=== PATIENT | female | born 1990 | race Caucasian/White ===

== ENCOUNTER 2022-12-23 23:34 | Outpatient (CLI) | payer OTHER ==
[2022-12-23 23:46] VITALS: BP 153/101; PULSE 77; TEMP 97.6
[2022-12-24] VITALS (7 sets, daily range): BP systolic 138–155; BP diastolic 85–100; PULSE 58–84
[2022-12-24 00:32] LABS: BASO % 0.2 % (0.0-2.0); EOS # 0.1 K/mm3 (0.0-0.7); EOS % 1.3 % (0.0-4.0); GRAN # 5.5 K/mm3 (1.4-6.5); GRAN % 61.5 % (42.2-75.2); HEMOGLOBIN 11.6 g/dl (12.5-16.0); LYMPH # 2.6 K/mm3 (1.2-3.4); LYMPH % 29.2 % (20.0-51.0); MEAN CELL VOLUME 93 fl (80.0-100.0); MEAN CORPUSCULAR HEMOGLOBIN 34 pg (27-31); MEAN CORPUSCULAR HGB CONC 37 g/dl (33.0-37.0); MEAN PLATELET VOLUME 9.2 fl (7.4-10.4); MONO # 0.7 K/mm3 (0.1-0.6); MONO % 7.4 % (1.7-9.3); PLATELET COUNT 168 K/mm3 (130-400); RED BLOOD COUNT 3.39 M/mm3 (4.10-5.30)
[2022-12-24 00:33] LABS: HEMATOCRIT 31.6 % (37.0-47.0)
[2022-12-24 00:43] LABS: ALBUMIN 3.1 gm/dL (3.5-5.0); BILIRUBIN,TOTAL 0.3 mg/dL (0.2-1.2); CALCIUM 8.8 mg/dL (8.4-10.2); CREATININE, serum 0.59 mg/dL (0.57-1.11); POTASSIUM 3.5 mmol/L (3.5-4.5); TOTAL PROTEIN 6.7 gm/dL (6.2-8.1)
[2022-12-24 00:45] LABS: COLLECTION METHOD CLEAN CATCH
[2022-12-24 00:54] LABS: SQUAMOUS EPITHELIAL 0-2 /hpf (0-10); URINE APPEARANCE Clear (CLEAR/HAZY); URINE BACTERIA Rare /hpf (NONE SEEN); URINE BLOOD Negative (NEGATIVE); URINE COLOR Straw (YELLOW); URINE GLUCOSE Negative (NEGATIVE); URINE KETONE Negative (NEGATIVE); URINE NITRATE Negative (NEGATIVE); URINE PROTEIN(semi-quant) Negative (NEGATIVE); URINE RBC 0-2 /hpf (0-2); URINE UROBILINOGEN 0.2 E.U/dL (0.2-1.0); URINE WBC 0-2 /hpf (0-2)
--- NOTE | 2022-12-24 00:56 | NUR ---
TO L&D PER W/C WITH C/O INCREASED B/P AT HOME. DENIES HEADACHE AT THIS TIME NO DIZZINESS NO VISUAL DISTURBANCE NO EDEMA NOTED. STATES BABY IS VERY ACTIVE. UA OBTAINED AND SENT TO LAB.
--- NOTE | 2022-12-24 01:00 | NUR ---
LAB HERE TO DRAW CBC, CMP AND SENT TO LAB.
--- NOTE | 2022-12-24 01:05 | NUR ---
PATIENT DENIES FEELING ANY CONTRACTIONS AT THIS TIME
--- NOTE | 2022-12-24 02:23 | NUR ---
DR CALL WITH LAB RESULTS AND REPORT B/P. ORDERS RECIEVED. GIVE LABATOL 100MG P.O. NOW WILL DR WILL CALL PERSCRIPTION TO PHARMACY .
--- NOTE | 2022-12-24 02:28 | NUR ---
PATIENT HAS AN OCCASIONAL CONTRACTION DENIES DISCOMFORT WITH CONTRACTION. INSTRUCTED ON WHEN TO RETURN TO HOSPITAL DUE TO CONTRACTIONS AND SROM. PATIENT STATES UNDERSTANDING OF INFORMATION.
--- NOTE | 2022-12-24 02:31 | NUR ---
DISCHARGE INSTRUCTIONS GIVEN DISCUSSED LABOR PRECAUTIONS AND WHEN TO RETURN TO HOSPITAL. TO GO IN TOMORROW FOR A B/P CHECK.
== END 2022-12-24 02:15 | disposition home or self-care (01) ==
LOC: LDRO 23:34 → LDR 12-24 00:08 → LDRO 12-24 02:15
PROVIDERS: Student in an Organized Health Care Education/Training Program
DX: Z34.90 Encounter for supervision of normal pregnancy, unspecified, unspecified trimester (principal); Z3A.00 Weeks of gestation of pregnancy not specified